=== PATIENT | female | born 1975 | race Caucasian/White ===

== ENCOUNTER 2024-09-21 05:57 | Day surgery (SDC) | payer BC ==
[2024-09-21] MEDS: Transderm Scop 1.5MG Patch TOP PRN (06:35)
[2024-09-21] MEDS: Lactated Ringers 1,000 ML IV SCH (06:36)
[2024-09-21] MEDS ORDERED: Versed 2 MG/2 ML Injection ONE (07:48)
[2024-09-21] MEDS ORDERED: propofoL IV ONE ×2 (07:48→07:57)
[2024-09-21 08:18] VITALS: RESP 16
[2024-09-21 08:34] VITALS: O2SAT 96
[2024-09-21 08:45] VITALS: BP 100/56; PULSE 72; TEMP 98.6
--- NOTE | 2024-09-22 11:56 | OP ---
SURGERY DATE/TIME: 09/21/2024 [id number] PREOPERATIVE DIAGNOSIS: Screening colonoscopy. POSTOPERATIVE DIAGNOSIS: Normal colon. PROCEDURE: Colonoscopy. SURGEON: Phil Muñoz MD ANESTHESIA: MAC by Simon Escobar CRNA. ESTIMATED BLOOD LOSS: None. SPECIMENS: None. DESCRIPTION OF PROCEDURE AND FINDINGS: After informed written consent was obtained, the patient was taken to the endoscopy suite. She was placed in the left lateral decubitus position, and anesthesia was titrated to the desired level of consciousness. Digital rectal exam showed normal sphincter tone and no internal lesions. Scope was inserted into the rectum, and sequentially, the entire colonic mucosa was traversed. Level of the cecum was reached and verified with direct visualization of the ileocecal valve. Upon withdrawal, careful mucosal inspection revealed no gross abnormality. Prior to withdrawal, retroflexion showed no internal lesions. Scope was removed. Patient was transferred to the recovery room in good condition. She has been advised routine 10-year followup unless clinical indication arises.
== END 2024-09-21 08:52 | disposition home or self-care (01) ==
LOC: SDC 05:57
PROVIDERS: ATTEND Family Medicine
DX: Z12.11 Encounter for screening for malignant neoplasm of colon (principal)
CPT/HCPCS: J2250; J2704; A9270-GY